=== PATIENT | female | born 1940 | race Caucasian/White ===

== ENCOUNTER 2016-12-29 10:40 | Inpatient (IN) | payer MEDICARE ==
[~2016-12-29] VITALS: Ht 154.9 cm; Wt 97.2 kg
[~2016-12-29 10:40] MED LIST: ASPI-515 PO; BUPR200T2 PO; DILT-4 PO; FERR325T10 PO; FURO20TA3 PO; GABA300C PO; HYDR-3138 PO; METO50TA82 PO; OMEG1CAP34 PO; OMEP-110 PO; QUET100T4 PO; RIVA15TA PO
[2016-12-29 13:48] VITALS: BP 124/91
[2016-12-29] MEDS ORDERED: MELA3TAB PO (14:53)
[2016-12-29] MEDS ORDERED: BUPR200T PO (14:55)
[2016-12-29] MEDS ORDERED: CETI10TA32 PO (14:56)
[2016-12-29] MEDS ORDERED: GLUC1TAB21 PO (15:15)
[2016-12-29] MEDS ORDERED: NORT50CA PO (15:15)
[2016-12-29] MEDS ORDERED: TRIA10.8 NAS (15:15)
[2016-12-29] MEDS ORDERED: DOCU100C8 PO (15:15)
[2016-12-29] MEDS ORDERED: AMLO5TAB2 PO (15:15)
[2016-12-29] MEDS ORDERED: ALBU8.5H3 INH (15:15)
[2016-12-29] MEDS ORDERED: HEPARIN 25,000 UNITS/500ML PMX 500 ML IV PRN ×2 (15:30→21:00)
[2016-12-29] MEDS ORDERED: ACETAMINOPHEN 325 MG TABLET PO PRN (16:00)
[2016-12-29] MEDS ORDERED: BISACODYL 10 MG SUPP PR PRN (16:00)
[2016-12-29] MEDS ORDERED: DOCUSATE 100 MG CAPSULE PO PRN (16:00)
[2016-12-29] MEDS ORDERED: ONDANSETRON ODT 4 MG PO PRN (16:00)
[2016-12-29] MEDS ORDERED: HYDROcodone/APAP 5/325 TABLET PO PRN ×2 (16:00)
[2016-12-29] MEDS: FERROUS SULFATE 325 MG TABLET PO SCH ×2 (16:00→21:42)
[2016-12-29] MEDS ORDERED: CEFTRIAXONE 1,000 MG in SODIUM CHLORIDE 0.9% 50 ML IV SCH (16:00)
[2016-12-29] MEDS ORDERED: GUAIFENESIN/DM 200-20MG, 10ML UDC PO PRN (16:00)
[2016-12-29] MEDS ORDERED: ALBUTEROL SULFATE 2.5 MG/3 ML NPPB PRN (16:00)
[2016-12-29] MEDS ORDERED: TRAZODONE 50MG TABLET PO PRN (16:00)
[2016-12-29] MEDS ORDERED: LORazepam 0.5MG TABLET PO PRN (16:30)
[2016-12-29] MEDS: DILTIAZEM 60 MG TABLET PO SCH ×2 (16:37→22:21)
[2016-12-29] MEDS: METOPROLOL TARTRATE 25 MG TABLET PO SCH ×2 (16:38→22:21)
[2016-12-29 18:39] VITALS: BP 107/71
[2016-12-29] MEDS ORDERED: CEFTRIAXONE PMX 1GM/50ML 50 ML IV SCH (21:00)
[2016-12-29] MEDS ORDERED: HEPARIN 5,000 UNITS/ML, 1ML IV PRN (21:00)
[2016-12-29] MEDS ORDERED: QUETIAPINE 100MG TABLET PO SCH (21:00)
[2016-12-29] MEDS ORDERED: HEPARIN 5,000 UNITS/ML, 1ML IV ONE (21:00)
[2016-12-29] MEDS: MELATONIN 3 MG TABLET PO SCH (21:42)
[2016-12-29] MEDS: BUPROPION SR 100 MG TABLET PO SCH (21:42)
[2016-12-29] MEDS: INSULIN ASPART 100 UNITS/ML, PEN SQ-INSULIN SCH (22:22)
[2016-12-30 00:32] VITALS: BP 134/91
[2016-12-30 04:33] LABS: BLOOD UREA NITROGEN 12 mg/dL (7-18)
[2016-12-30] MEDS: METOPROLOL TARTRATE 25 MG TABLET PO SCH ×4 (05:46→21:08)
[2016-12-30] MEDS: DILTIAZEM 60 MG TABLET PO SCH ×4 (05:46→21:08)
[2016-12-30 05:47] VITALS: BP 126/69
[2016-12-30] MEDS: INSULIN ASPART 100 UNITS/ML, PEN SQ-INSULIN SCH ×4 (07:00→20:22)
[2016-12-30] MEDS ORDERED: LORATADINE 10 MG TABLET PO SCH (09:00)
[2016-12-30] MEDS: FLUTICASONE NASAL SPRAY 16GM NAS SCH ×2 (09:00→21:08)
[2016-12-30] MEDS ORDERED: DIGOXIN 0.125 MG TABLET PO SCH (09:00)
[2016-12-30] MEDS ORDERED: FUROSEMIDE 20 MG TABLET PO SCH (09:00)
[2016-12-30] MEDS ORDERED: CEFTRIAXONE PMX 1GM/50ML 50 ML IV SCH (09:00)
[2016-12-30 09:53] VITALS: BP 138/92
[2016-12-30] MEDS: BUPROPION SR 100 MG TABLET PO SCH ×2 (09:55→21:08)
[2016-12-30] MEDS: FERROUS SULFATE 325 MG TABLET PO SCH ×3 (09:56→21:08)
[2016-12-30] MEDS ORDERED: VISIPAQUE 270 MG/ML, 50ML BOTTLE ONE (13:13)
[2016-12-30 15:24] VITALS: BP 147/94
[2016-12-30 19:51] VITALS: BP 143/71
[2016-12-30] MEDS: MELATONIN 3 MG TABLET PO SCH (21:08)
[2016-12-31 02:20] VITALS: BP 127/80
[2016-12-31 03:44] LABS: BLOOD UREA NITROGEN 8 mg/dL (7-18)
[2016-12-31] MEDS: METOPROLOL TARTRATE 25 MG TABLET PO SCH (03:56)
[2016-12-31] MEDS: DILTIAZEM 60 MG TABLET PO SCH (03:56)
[2016-12-31 03:57] VITALS: BP 147/66
== END 2017-01-01 13:30 | disposition left against medical advice (07) | DRG 308 ==
LOC: 5SO 13:42 → DCLOUNGE 01-01 12:00 → UNDODISIN 01-01 13:49 → 5SO 01-01 19:40 → EDIP 01-01 19:40
PROVIDERS: ADMIT Internal Medicine; ATTEND Internal Medicine
PROC: 05JY3ZZ Inspection of Upper Vein, Percutaneous Approach (ICD-10-PCS; principal; 2016-12-30)
DX: I48.91 Unspecified atrial fibrillation (principal); G93.40 Encephalopathy, unspecified; N17.9 Acute kidney failure, unspecified; D68.59 Other primary thrombophilia; J96.10 Chronic respiratory failure, unspecified whether with hypoxia or hypercapnia; N39.0 Urinary tract infection, site not specified; Z68.41 Body mass index [BMI] 40.0-44.9, adult; I95.9 Hypotension, unspecified; N18.3 Chronic kidney disease, stage 3 (moderate); E11.22 Type 2 diabetes mellitus with diabetic chronic kidney disease; E78.5 Hyperlipidemia, unspecified; F03.90 Unspecified dementia, unspecified severity, without behavioral disturbance, psychotic disturbance, mood disturbance, and anxiety; G47.00 Insomnia, unspecified; G47.33 Obstructive sleep apnea (adult) (pediatric); I13.10 Hypertensive heart and chronic kidney disease without heart failure, with stage 1 through stage 4 chronic kidney disease, or unspecified chronic kidney disease; I45.81 Long QT syndrome; E66.01 Morbid (severe) obesity due to excess calories; Z53.29 Procedure and treatment not carried out because of patient's decision for other reasons; I48.92 Unspecified atrial flutter; K58.9 Irritable bowel syndrome, unspecified; Z79.899 Other long term (current) drug therapy; Z80.0 Family history of malignant neoplasm of digestive organs; Z85.528 Personal history of other malignant neoplasm of kidney; Z85.828 Personal history of other malignant neoplasm of skin; Z87.891 Personal history of nicotine dependence; Z90.5 Acquired absence of kidney; Z99.81 Dependence on supplemental oxygen
CPT/HCPCS: 36415; 71010; 76937; 77001; 80048; 82962; 85025; 85520; J0696; J1644; J1815; Q9966; C1769